=== PATIENT | male | born 1975 | race Caucasian/White ===

== ENCOUNTER 2017-01-17 20:25 | Emergency (ER) | payer OTHER ==
[~2017-01-17] VITALS: Ht 185.4 cm; Wt 80.7 kg
[2017-01-17 20:30] VITALS: BP 114/75
--- NOTE | 2017-01-17 20:39 | ED.ADGEN ---
Adult General Chief Complaint Chief Complaint " I had surgery on this Rt. [facility].. Dr. Landers. .. I had a scope and some repair.. I am to get it done on Lt too..." HPI HPI Patient is a 41 year old male who presents with bleeding from suture line Rt. Knee. Pt. had a Rt. scopic lateral release today at [facility] by Dr. Landers. Patient had concerns over the large amount of fluid coming from incision sites and bleeding from one incision site on right knee. Knee is swollen. Patient is able to do straight leg lift. Distal neurovascular intact. No history of coagulopathy. Discussed presentation testing and treatment plan with Dr. Landers. He advised to expect in continued drainage of fluid from right knee over the next 2 or 3 days. Change dressing 3 times a day as needed for fluid collection. Keep follow-up as scheduled. Return if any concerns. Review of Systems Review of Systems Constitutional: Denies fever or chills [] Eyes: Denies change in visual acuity, redness, or eye pain [] HENT: Denies nasal congestion or sore throat [] Respiratory: Denies cough or shortness of breath [] Cardiovascular: No additional information not addressed in HPI [] GI: Denies abdominal pain, nausea, vomiting, bloody stools or diarrhea [] : Denies dysuria or hematuria [] Musculoskeletal: Denies back pain or joint pain [] Integument: Denies rash or skin lesions [] Neurologic: Denies headache, focal weakness or sensory changes [] Endocrine: Denies polyuria or polydipsia [] All other systems were reviewed and found to be within normal limits, except as documented in this note. Family History Family History Non contributory Current Medications Current Medications Current Medications Medications (Trade) Dose Ordered Sig/Smith Start Time Stop Time Status Last Admin Dose Admin Gelatin (Gelfoam Size 12-7mm) 1 each STK-MED ONCE 01/17/17 20:42 01/17/17 20:43 DC Gelatin (Gelfoam Size 100) 1 each 1X ONCE 01/17/17 20:45 01/17/17 21:06 DC 01/17/17 20:35 1 EACH Allergies Allergies Allergies Coded Allergies Type Severity Reaction Last Updated Verified Penicillins Allergy Unknown 01/17/17 Yes Physical Exam Physical Exam Constitutional: Well developed, well nourished, no acute distress, non-toxic appearance. [] HENT: Normocephalic, atraumatic, bilateral external ears normal, oropharynx moist, no oral exudates, nose normal. [] Eyes: PERRLA, EOMI, conjunctiva normal, no discharge. [] Neck: Normal range of motion, no tenderness, supple, no stridor. [] Cardiovascular:Heart rate regular rhythm, no murmur [] Lungs & Thorax: Bilateral breath sounds clear to auscultation [] Abdomen: Bowel sounds normal, soft, no tenderness, no masses, no pulsatile masses. [] Skin: Warm, dry, no erythema, no rash. [] Back: No tenderness, no CVA tenderness. [] Extremities: Right knee tenderness, no cyanosis, no clubbing, ROM intact, right knee edema. Right knee surgery sites/ incision sites as per history of present illness. Neurologic: Alert and oriented X 3, normal motor function, normal sensory function, no focal deficits noted. [] Psychologic: Affect anxious, judgement normal, mood normal. [] Current Patient Data Vital Signs Vital Signs Date Time Temp Pulse Resp B/P (MAP) Pulse Ox O2 Delivery O2 Flow Rate FiO2 01/17/17 20:30 97.9 73 16 100 Room Air EKG EKG [] Radiology/Procedures Radiology/Procedures [] Course & Med Decision Making Course & Med Decision Making Pertinent Labs and Imaging studies reviewed. (See chart for details). Patient instructed to change dressings 3-4 times a day as drainage continues.. Keep follow-up as scheduled. Return if any concerns. [] Final Impression Final Impression 1. Post Surgical Bleeding- Lateral Release[], and fluid drainage- right knee Problems: Dragon Disclaimer Dragon Disclaimer This electronic medical record was generated, in whole or in part, using a voice recognition dictation system. RENETTA DONALD MD Jan 17, 2017 20:39
[2017-01-17] MEDS ORDERED: GELATIN SPONGE SIZE 12-7MM SPONGE. ONE (20:42)
[2017-01-17] MEDS ORDERED: GELATIN SPONGE SIZE 100. TP ONE (20:45)
== END 2017-01-17 21:23 | disposition home or self-care (01) ==
LOC: ER 20:25
DX: M96.89 Other intraoperative and postprocedural complications and disorders of the musculoskeletal system (principal); R22.41 Localized swelling, mass and lump, right lower limb; Z98.890 Other specified postprocedural states; Z88.0 Allergy status to penicillin
CPT/HCPCS: 99283

== ENCOUNTER 2017-02-14 11:42 | Emergency (ER) | payer OTHER ==
[~2017-02-14] VITALS: Ht 185.4 cm; Wt 80.7 kg
[2017-02-14] MEDS ORDERED: ONDANSETRON PF 4 MG/2 ML VIAL. IV ONE (12:15)
[2017-02-14] MEDS ORDERED: IV NORMAL SALINE 1,000ML 1,000 ML IV ONE ×2 (12:15→16:00)
--- NOTE | 2017-02-14 12:20 | RAD ---
Three-view right knee study Clinical indications: Right knee swelling and pain and bruising. Drainage of fluid from arthroscopic site for 5 days. Arthroscopy was performed in December 2016. Findings: No acute fracture or dislocation or osteolytic process is seen. Mild degenerative spurring of the patellofemoral joint compartment is seen. No significant arthritic change of the medial or lateral tibiofemoral joint compartments is seen. A small right knee joint effusion is seen. IMPRESSION: No acute osseous abnormality.
[2017-02-14 12:40] LABS: BASO % 1 % (0-3); EOS # 0.1 x10^3/uL (0.0-0.7); EOS % 1 % (0-3); HEMATOCRIT 36.9 % (39.0-53.0); HEMOGLOBIN 12.6 g/dL (13.0-17.5); LYMPH # 0.7 x10^3/uL (1.0-4.8); LYMPH % 11 % (24-48); MEAN CORPUSCULAR HEMOGLOBIN 32 pg (25-35); MEAN CORPUSCULAR HGB CONC 34 g/dL (31-37); MEAN CORPUSCULAR VOLUME 92 fL (79-100); MONO # 0.7 x10^3/uL (0.0-1.1); MONO % 11 % (0-9); NEUT % 76 % (31-73); PLATELET COUNT 294 x10^3/uL (140-400); RED CELL DISTRIBUTION WIDTH 13.8 % (11.5-14.5); WHITE BLOOD COUNT 6.6 x10^3/uL (4.0-11.0)
[2017-02-14 12:53] LABS: ALBUMIN 3.2 g/dL (3.4-5.0); ALBUMIN/GLOBULIN RATIO 0.6 (1.0-1.7); CALCIUM 9.2 mg/dL (8.5-10.1); CREATININE 1.2 mg/dL (0.7-1.3); GFR 65.8; POTASSIUM 3.6 mmol/L (3.5-5.1); TOTAL BILIRUBIN 0.7 mg/dL (0.2-1.0); TOTAL PROTEIN 8.3 g/dL (6.4-8.2)
[2017-02-14 13:17] LABS: C REACTIVE PROTEIN 316.6 mg/L (0-3.3)
[2017-02-14] MEDS ORDERED: LIDOCAINE 1% Multi-Dose 20 ML VIAL. ONE (13:33)
[2017-02-14] MEDS ORDERED: LIDOCAINE 2% 20 ML VIAL. ONE (13:33)
[2017-02-14 13:48] LABS: SEDIMENTATION RATE 119 (0-15)
[2017-02-14] MEDS ORDERED: MORPHINE SULFATE 4 MG/ML DISP.SYRIN. IV ONE ×2 (14:00→16:30)
--- NOTE | 2017-02-14 14:08 | ED.ADGEN ---
Past History Past Medical History: Glaucoma Past Surgical History: Other Drug Use: None Adult General Chief Complaint Chief Complaint Right knee pain HPI HPI Patient is a 42-year-old male status post right knee arthrocentesis on 01/[address] Archibald who presents with increased right knee pain, swelling, and drainage from previous incision 4 days. Patient was seen in the office by Dr. Landers when symptoms began. Patient with increased pain, swelling and continued serous drainage since symptoms began. Also reports chills and subjective fever. Patient has been using crutches due to pain and decreased range of motion. No other acute symptoms or complaints. No motor weakness or loss of sensation.[] Review of Systems Review of Systems Review symptoms as per history of present illness. All other review symptoms are negative. [] All other systems were reviewed and found to be within normal limits, except as documented in this note. Current Medications Current Medications Current Medications Medications (Trade) Dose Ordered Sig/Smith Start Time Stop Time Status Last Admin Dose Admin Cefazolin Sodium 2 gm/Dextrose 100 ml @ 200 mls/hr 1X ONCE 02/14/17 14:30 02/14/17 14:59 DC 02/14/17 14:45 200 MLS/HR Fentanyl Citrate (Fentanyl 2ml Vial) 50 mcg 1X ONCE 02/14/17 12:15 02/14/17 12:16 DC 02/14/17 12:34 50 MCG Lidocaine HCl 20 ml STK-MED ONCE 02/14/17 13:33 02/14/17 13:34 DC Morphine Sulfate (Morphine 4mg Syringe) 4 mg 1X ONCE 02/14/17 14:00 02/14/17 14:01 DC 02/14/17 13:52 4 MG Ondansetron HCl (Zofran) 4 mg 1X ONCE 02/14/17 12:15 02/14/17 12:16 DC 02/14/17 12:33 4 MG Sodium Chloride 1,000 ml @ 1,000 mls/hr 1X ONCE 02/14/17 16:00 02/14/17 16:59 Allergies Allergies Allergies Coded Allergies Type Severity Reaction Last Updated Verified Penicillins Allergy Unknown 01/17/17 Yes Physical Exam Physical Exam Constitutional: Well developed, well nourished, no acute distress, non-toxic appearance. [] HENT: Normocephalic, atraumatic, bilateral external ears normal, oropharynx moist, no oral exudates, nose normal. [] Eyes: PERRLA, EOMI, conjunctiva normal, no discharge. [] Neck: Normal range of motion, no tenderness, supple, no stridor. [] Cardiovascular:Heart rate regular rhythm, no murmur [] Lungs & Thorax: Bilateral breath sounds clear to auscultation. [] Abdomen: Bowel sounds normal, soft, no tenderness. [] Skin: Warm, dry, no erythema. [] Back: No tenderness. [] Extremities: R Knee tenderness, moderate swelling, feels tight, not compressible. Light serous fluid leaking right lateral arthrocentesis surgical incision site. No erythema, induration, cellulitis or warmth appreciated. Decreased range of motion secondary pain . [] Neurologic: Alert and oriented X 3, normal motor function, normal sensory function, no focal deficits noted. [] ] Current Patient Data Vital Signs Vital Signs Date Time Temp Pulse Resp B/P (MAP) Pulse Ox O2 Delivery O2 Flow Rate FiO2 02/14/17 14:55 115 20 142/69 (93) 96 02/14/17 13:30 Room Air 02/14/17 11:42 98.3 Lab Results Laboratory Tests Test 02/14/17 12:25 02/14/17 12:28 White Blood Count 6.6 x10^3/uL (4.0-11.0) Red Blood Count 4.00 x10^6/uL (4.30-5.70) L Hemoglobin 12.6 g/dL (13.0-17.5) L Hematocrit 36.9 % (39.0-53.0) L Mean Corpuscular Volume 92 fL (79-100) Mean Corpuscular Hemoglobin 32 pg (25-35) Mean Corpuscular Hemoglobin Concent 34 g/dL (31-37) Red Cell Distribution Width 13.8 % (11.5-14.5) Platelet Count 294 x10^3/uL (140-400) Neutrophils (%) (Auto) 76 % (31-73) H Lymphocytes (%) (Auto) 11 % (24-48) L Monocytes (%) (Auto) 11 % (0-9) H Eosinophils (%) (Auto) 1 % (0-3) Basophils (%) (Auto) 1 % (0-3) Neutrophils # (Auto) 5.0 x10^3uL (1.8-7.7) Lymphocytes # (Auto) 0.7 x10^3/uL (1.0-4.8) L Monocytes # (Auto) 0.7 x10^3/uL (0.0-1.1) Eosinophils # (Auto) 0.1 x10^3/uL (0.0-0.7) Basophils # (Auto) 0.0 x10^3/uL (0.0-0.2) Erythrocyte Sedimentation Rate 119 (0-15) H Sodium Level 132 mmol/L (136-145) L Potassium Level 3.6 mmol/L (3.5-5.1) Chloride Level 94 mmol/L (98-107) L Carbon Dioxide Level 27 mmol/L (21-32) Anion Gap 11 (6-14) Blood Urea Nitrogen 9 mg/dL (8-26) Creatinine 1.2 mg/dL (0.7-1.3) Estimated GFR (Cockcroft-Gault) 65.8 BUN/Creatinine Ratio 8 (6-20) Glucose Level 111 mg/dL (70-99) H Calcium Level 9.2 mg/dL (8.5-10.1) Total Bilirubin 0.7 mg/dL (0.2-1.0) Aspartate Amino Transferase (AST) 26 U/L (15-37) Alanine Aminotransferase (ALT) 34 U/L (16-63) Alkaline Phosphatase 85 U/L (46-116) C-Reactive Protein 316.6 mg/L (0-3.3) H Total Protein 8.3 g/dL (6.4-8.2) H Albumin 3.2 g/dL (3.4-5.0) L Albumin/Globulin Ratio 0.6 (1.0-1.7) L Uric Acid 4.0 mg/dL (3.5-7.2) EKG EKG [] Radiology/Procedures Radiology/Procedures [Knee, no acute osseous abnormality per radiology report.] Course & Med Decision Making Course & Med Decision Making Pertinent Labs and Imaging studies reviewed. (See chart for details) [Attempted knee aspiration unsuccessful. Concern for possible septic joint. Case discussed with Dr. Landers the patient's orthopaedic surgeon who is out of town and unavailable to see patient. Dr. Landers states his on-call coverage physician is also out of town and unavailable to see. Patient remains tachycardic despite fluids and pain medication. Elevated inflammatory markers tachycardia meet SIRS criteria. Empiric antibiotics and IVF given. Patient requesting transfer to [facility]. Dr. Valadez has graciously agrees to consult for this patient. Dr. Rivas to accepts to [facility]. ] Final Impression Final Impression [1. Right arthralgia 2. SIRs] Problems: Dragon Disclaimer Dragon Disclaimer This electronic medical record was generated, in whole or in part, using a voice recognition dictation system. Arthrocentesis Indication: R knee pain/swelling:] Consent: Written consent obtained from patient after risks benefits and alternatives explained in detail and all questions answered:] Procedure: The [right knee] was positioned appropriately and the landmarks were identified. Local anesthesia was injected to bellow the medial patella surface: ]. The area was then prepped and draped in the usual sterile fashion. A needle was then introduced into the joint space at which point which was unsuccessful on 2 attempts]. This lateral approach was then attempted which was also unsuccessful. A small amount of phlegmon was noted to be present on aspiration possibly impeding aspiration.. A culture was sent of the phlegmon was sent:]. A sterile dressing was then applied to the site. The patient tolerated the procedure well:]. Complications: Unsuccessful arthrocentesis] TONIE VOGT DO Feb 14, 2017 14:08
[2017-02-14] MEDS ORDERED: CEFAZOLIN SODIUM IV ONE (14:30)
[2017-02-14] MEDS ORDERED: DEXTROSE 5% IV ONE (14:30)
[2017-02-14 18:19] VITALS: BP 140/73
== END 2017-02-14 18:21 | disposition home or self-care (01) ==
LOC: ER 11:42
DX: M25.561 Pain in right knee (principal); R65.10 Systemic inflammatory response syndrome (SIRS) of non-infectious origin without acute organ dysfunction; Z88.0 Allergy status to penicillin
CPT/HCPCS: 20610; 36415; 73562; 80053; 84550; 85025; 85651; 86140; 87070; 96361; 96365; 96375; 99285; J0690; J2270; J2405; J3010; 87186; J7030

== ENCOUNTER 2017-02-18 11:02 | Emergency (ER) | payer OTHER ==
[~2017-02-18] VITALS: Ht 185.4 cm; Wt 80.7 kg
[2017-02-18 11:20] VITALS: BP 122/77
--- NOTE | 2017-02-18 11:42 | PHYS DOC ---
Past History Past Medical History: Glaucoma, Other Past Surgical History: Other Alcohol Use: Occasionally Drug Use: None Adult General Chief Complaint Chief Complaint: PICC line problem HPI HPI Patient is a 42-year-old male who has a PICC line in his right arm because of infection in recently operated right knee. He was discharged from [facility] yesterday and scheduled to have IV antibiotics 3 times a day using the PICC line. This morning, visiting nurse came and administered IV antibiotics without incident. A while later, the patient noted bleeding from the PICC line site. He doesn't believe he pulled on the line or had any other injury to the line. The patient is using a walker and supposed to be nonweightbearing on the right knee so he states he does have to use his right arm some and has to flex his right arm muscle, he is assumes maybe that is what happened. Review of Systems Review of Systems Integument: Denies bleeding elsewhere Allergies Allergies Allergies Coded Allergies Type Severity Reaction Last Updated Verified Penicillins Allergy Unknown 01/17/17 Yes Physical Exam Physical Exam Constitutional: Well developed, well nourished, no acute distress, non-toxic appearance. [] HENT: Normocephalic, atraumatic, bilateral external ears normal, nose normal. [ ] Eyes: conjunctiva normal, no discharge. [] Neck: Normal range of motion, no stridor. [] Skin: Warm, dry, no erythema, no rash. [] Extremities: No tenderness, no cyanosis, no clubbing, ROM intact, no edema. Right upper extremity has a PICC line with dressing in place. There is a small amount of fresh appearing blood under the PICC line dressing that appears to have come from the insertion site. There is no active bleeding. Neurologic: Alert and oriented X 3, normal motor function, no focal deficits noted. [] EKG EKG [] Radiology/Procedures Radiology/Procedures [] Course & Med Decision Making Course & Med Decision Making Pertinent Labs and Imaging studies reviewed. (See chart for details) 42-year-old male presents with a small amount of bleeding around the insertion site of the PICC line in the right arm. The dressing was removed, the site was cleaned, and a fresh dressing was placed by ED nursing staff. [] Dragon Disclaimer Dragon Disclaimer This electronic medical record was generated, in whole or in part, using a voice recognition dictation system. Departure Departure: Impression: Primary Impression: Bleeding from PICC line Disposition: 01 HOME, SELF-CARE Condition: STABLE Referrals: GRICELDA FRANCO DO (PCP) Additional Instructions: As much as possible, avoid using the right arm to avoid disturbing the PICC line. If more bleeding occurs from the PICC line site, elevate the arm to encourage the bleeding to stop. If the bleeding continues actively and you are concerned about blood loss, return to emergency. If the bleeding will stop by elevation, call your visiting nurse to schedule a visit to redress the PICC line site. MAKEDA QUAN MD Feb 18, 2017 11:42
== END 2017-02-18 11:55 | disposition home or self-care (01) ==
LOC: ER 11:02
DX: T82.838A Hemorrhage due to vascular prosthetic devices, implants and grafts, initial encounter (principal); Z88.0 Allergy status to penicillin
CPT/HCPCS: 99283

== ENCOUNTER 2019-10-25 00:36 | Emergency (ER) | payer OTHER ==
[~2019-10-25] VITALS: Ht 185.4 cm; Wt 72.2 kg
[2019-10-25 00:40] VITALS: BP 150/97
--- NOTE | 2019-10-25 01:06 | PHYS DOC ---
Past History Past Medical History: Glaucoma, Hypothyroid, Other Past Surgical History: Other Alcohol Use: Occasionally Drug Use: None General Adult EDM: Chief Complaint: LOWER EXT PAIN HPI: HPI: 44-year-old male presents with 2-day history of right lower extremity pain and swelling. The patient's lower leg was sensitive 2 days ago and the patient did not think much of it. Yesterday it became more swollen and tender to the touch on the medial side. There appeared to be some prominence like swelling, but no ecchymosis. Patient has no history of DVTs or PE. He denies shortness of breath or dizziness. Review of Systems: Review of Systems: Constitutional: Denies fever or chills Eyes: Denies change in visual acuity HENT: Denies nasal congestion or sore throat Respiratory: Denies cough or shortness of breath Cardiovascular: Denies chest pain or edema GI: Denies abdominal pain, nausea, vomiting, bloody stools or diarrhea : Denies dysuria Musculoskeletal: Right lower leg pain Integument: Denies rash Neurologic: Denies headache, focal weakness or sensory changes Endocrine: Denies polyuria or polydipsia Lymphatic: Denies swollen glands Psychiatric: Denies depression or anxiety Heart Score: Risk Factors: Risk Factors: DM, Current or recent (<one month) smoker, HTN, HLP, family history of CAD, obesity. Risk Scores: Score 0 - 3: 2.5% MACE over next 6 weeks - Discharge Home Score 4 - 6: 20.3% MACE over next 6 weeks - Admit for Clinical Observation Score 7 - 10: 72.7% MACE over next 6 weeks - Early Invasive Strategies Allergies: Allergies: Allergies Coded Allergies Type Severity Reaction Last Updated Verified Penicillins Allergy Unknown 01/17/17 Yes Physical Exam: PE: Constitutional: Well developed, well nourished, no acute distress, non-toxic appearance. [] HENT: Normocephalic, atraumatic, bilateral external ears normal, oropharynx moist, no oral exudates, nose normal. [] Eyes: PERRLA, EOMI, conjunctiva normal, no discharge. [] Neck: Normal range of motion, no tenderness, supple, no stridor. [] Cardiovascular:Heart rate regular rhythm, no murmur [] Lungs & Thorax: Bilateral breath sounds clear to auscultation [] Abdomen: Bowel sounds normal, soft, no tenderness, no masses, no pulsatile masses. [] Skin: Warm, dry, no erythema, no rash. [] Back: No tenderness, no CVA tenderness. [] Extremities: Tenderness of the right medial calf, some prominence of the venous system. [] Neurologic: Alert and oriented X 3, normal motor function, normal sensory function, no focal deficits noted. [] Psychologic: Affect normal, judgement normal, mood normal. [] Current Patient Data: Vital Signs: Vital Signs Date Time Temp Pulse Resp B/P (MAP) Pulse Ox O2 Delivery O2 Flow Rate FiO2 10/25/19 00:40 97.5 74 14 150/97 (114) 97 Room Air EKG: EKG: [] Radiology/Procedures: Radiology/Procedures: [] Impressions: INDICATION: Reason: pain, swelling / Spl. Instructions: / History: COMPARISON: None. TECHNIQUE: Grayscale, color and doppler ultrasound images were obtained of the right lower extremity venous vasculature. RIGHT: No thrombus identified in the common femoral vein, femoral vein, popliteal vein or visualized calf veins. IMPRESSION: * No thrombus identified in deep venous system of right lower extremity. * Superficial thrombus is seen within a varicose vein off of greater saphenous vein. Electronically signed by: Sandra Aparicio MD (10/25/2019 2:24 AM) [id number] DICTATED AND SIGNED BY: SANDRA APARICIO MD DATE: 10/25/19 0224 CC: GRICELDA FRNACO DO; TONIE WILLIS DO ~ Course & Med Decision Making: Course & Med Decision Making Pertinent Labs and Imaging studies reviewed. (See chart for details) The patient's labs are unremarkable. His ultrasound does show that he has a superficial thrombus in that calf. I have advised supportive care such as ibuprofen. [] Dragon Disclaimer: Dragon Disclaimer: This electronic medical record was generated, in whole or in part, using a voice recognition dictation system. Departure Departure: Impression: Primary Impression: Superficial thrombosis of leg Qualified Codes: I82.811 - Embolism and thrombosis of superficial veins of right lower extremity Disposition: HOME/RESIDENCE PRIOR TO ADM Condition: STABLE Referrals: GRICELDA FRANCO DO (PCP) Patient Instructions: Venous Thromboembolism Justification of Admission: Justification of Admission: Justification of Admission Dx: N/A TONIE WILLIS DO Oct 25, 2019 01:06
[2019-10-25 01:50] LABS: BASO # 0.1 x10^3/uL (0.0-0.2); BASO % 1 % (0-3); EOS # 0.3 x10^3/uL (0.0-0.7); EOS % 6 % (0-3); HEMATOCRIT 39.6 % (39.0-53.0); HEMOGLOBIN 13.6 g/dL (13.0-17.5); LYMPH # 1.8 x10^3/uL (1.0-4.8); LYMPH % 37 % (24-48); MEAN CORPUSCULAR HEMOGLOBIN 32 pg (25-35); MEAN CORPUSCULAR HGB CONC 35 g/dL (31-37); MEAN CORPUSCULAR VOLUME 94 fL (79-100); MONO # 0.4 x10^3/uL (0.0-1.1); MONO % 7 % (0-9); NEUT # 2.3 x10^3uL (1.8-7.7); NEUT % 48 % (31-73); PLATELET COUNT 199 x10^3/uL (140-400); RED BLOOD COUNT 4.23 x10^6/uL (4.30-5.70); RED CELL DISTRIBUTION WIDTH 13.2 % (11.5-14.5); WHITE BLOOD COUNT 4.8 x10^3/uL (4.0-11.0)
[2019-10-25 01:58] LABS: CALCIUM 9.2 mg/dL (8.5-10.1); CREATININE 1.1 mg/dL (0.7-1.3); GFR 72.1; POTASSIUM 4.1 mmol/L (3.5-5.1)
[2019-10-25 02:05] LABS: ALBUMIN 4.1 g/dL (3.4-5.0); ALBUMIN/GLOBULIN RATIO 1.2 (1.0-1.7); TOTAL BILIRUBIN 0.5 mg/dL (0.2-1.0); TOTAL PROTEIN 7.5 g/dL (6.4-8.2)
--- NOTE | 2019-10-25 02:27 | RAD ---
INDICATION: Reason: pain, swelling / Spl. Instructions: / History: COMPARISON: None. TECHNIQUE: Grayscale, color and doppler ultrasound images were obtained of the right lower extremity venous vasculature. RIGHT: No thrombus identified in the common femoral vein, femoral vein, popliteal vein or visualized calf veins. IMPRESSION: * No thrombus identified in deep venous system of right lower extremity. * Superficial thrombus is seen within a varicose vein off of greater saphenous vein. Electronically signed by: Sebastian Aparicio MD (10/25/2019 2:24 AM) [id number]
== END 2019-10-25 02:48 | disposition home or self-care (01) ==
LOC: ER 00:36
DX: I82.811 Embolism and thrombosis of superficial veins of right lower extremity (principal); E03.9 Hypothyroidism, unspecified; Z88.0 Allergy status to penicillin
CPT/HCPCS: 36415; 80053; 85025; 93971; 99284